=== PATIENT | male | born 1965 | race American Indian/Alaskan Native ===

== ENCOUNTER 2017-02-12 15:20 | Emergency (ER) | payer MEDICAID ==
--- NOTE | 2017-02-12 18:53 | Emergency Department Report ---
ED Extremity Problem HPI - General Chief complaint: Extremity Problem,Nontraumatic Stated complaint: SWELLING L LEG Time Seen by Provider: 02/12/17 18:43 Source: patient, EMS Mode of arrival: Stretcher Limitations: Other - History of Present Illness Initial comments: Patient is 52 years old male brought from [facility] for evaluation of left lower extremity swelling and pain for the last 4-5 days. Patient stated that he had history of DVT in the same leg he was on Xorelta. Patient denied any chest pain shortness of breath cough or fever. MD Complaint: extremity pain, extremity swelling -: days(s) Location: left, lower extremity History of Same: Yes Severity scale (0 -10): 6 Quality: sharp Associated Symptoms: denies: chest pain, shortness of breath, fever, myalgias - Related Data Allergies Allergy/AdvReac Type Severity Reaction Status Date / Time No Known Allergies Allergy Unverified 02/12/17 16:21 ED Review of Systems ROS: Stated complaint: SWELLING L LEG Other details as noted in HPI Comment: All other systems reviewed and negative Constitutional: denies: chills, fever Respiratory: denies: cough, orthopnea, shortness of breath, SOB with exertion, SOB at rest Cardiovascular: denies: chest pain, palpitations Gastrointestinal: denies: abdominal pain, nausea, vomiting Genitourinary: denies: urgency, dysuria, frequency, hematuria Neurological: denies: headache, weakness, numbness, paresthesias ED Past Medical Hx - Past Medical History Previous Medical History?: Yes Hx Deep Vein Thrombosis: Yes Hx Arthritis: Yes Hx Seizures: Yes Hx Psychiatric Treatment: Yes (Major Depressive Disorder) - Surgical History Past Surgical History?: Yes Additional Surgical History: left hand, left shoulder - Social History Smoking Status: Current Every Day Smoker Substance Use Type: None ED Physical Exam - General Limitations: Other General appearance: alert, in no apparent distress, other (patient was feeding easily however, looks comfortable in no acute distress) - Head Head exam: Present: atraumatic, normocephalic - Eye Eye exam: Present: normal appearance, PERRL - ENT ENT exam: Present: normal exam, normal orophraynx, mucous membranes moist - Neck Neck exam: Present: normal inspection, full ROM. Absent: tenderness, meningismus - Respiratory Respiratory exam: Present: normal lung sounds bilaterally. Absent: respiratory distress, wheezes, rales, rhonchi, stridor, chest wall tenderness, accessory muscle use, decreased breath sounds, prolonged expiratory - Cardiovascular Cardiovascular Exam: Present: regular rate, normal rhythm, normal heart sounds - GI/Abdominal GI/Abdominal exam: Present: soft, normal bowel sounds. Absent: distended, tenderness, guarding, rebound, rigid, organomegaly, mass, bruit, pulsatile mass , hernia - Extremities Exam Extremities exam: Present: tenderness (left leg), calf tenderness (left leg). Absent: pedal edema - Neurological Exam Neurological exam: Present: alert, oriented X3, CN II-XII intact, normal gait - Psychiatric Psychiatric exam: Present: depressed, suicidal ideation - Skin Skin exam: Present: warm, intact, normal color. Absent: cyanosis, diaphoretic ED Course Vital Signs 02/12/17 16:29 Temperature 97.5 F L Pulse Rate 88 Respiratory 18 Rate Blood Pressure 114/78 [Right] O2 Sat by Pulse 100 Oximetry - Reevaluation(s) Reevaluation #1: 02/12/17 19:55 Examined the patient again patient in no acute distress, sitting comfortably easily arousable. Denied any chest pain or shortness of breath. Reevaluation #2: 02/13/17 00:51 Patient receive his Xarorelta and he observed in the ER for 2 hours. Patient is sleeping comfortably in no acute distress. Denied any chest pain or shortness of breath, will discharge patient to go back to his facility. ED Medical Decision Making - Lab Data Result diagrams: 02/12/17 18:56 02/12/17 20:00 - Radiology Data Radiology results: report reviewed Left lower extremity Doppler ultrasound positive for DVT - Medical Decision Making Discussed with Dr. Kramer who advised patient can be started on Xarolleta and observed in the ER for 2 hours and then can be discharged his a prescription for Xarellota Critical care attestation.: If time is entered above; I have spent that time in minutes in the direct care of this critically ill patient, excluding procedure time. ED Disposition Clinical Impression: Acute deep vein thrombosis (DVT) of distal end of left lower extremity Disposition: DC-01 TO HOME OR SELFCARE Is pt being admited?: No Condition: Stable Instructions: Deep Venous Thrombosis (ED) Referrals: PRIMARY CARE, [Primary Care Provider] - 3-5 Days
[2017-02-12 19:02] LABS: Hematocrit 39.6 % (35.5-45.6); Mean Corpuscular HGB Conc 33 % (32-34); Mean Corpuscular Hemoglobin 28 pg (28-32); Mean Corpuscular Volume 85 fl (84-94); Platelet Count 419 K/mm3 (140-440); Red Blood Count 4.69 M/mm3 (3.65-5.03); Red Cell Distribution Width 13.4 % (13.2-15.2); White Blood Count 7.9 K/mm3 (4.5-11.0)
[2017-02-12 19:12] LABS: Partial Thromboplastin Time 29.2 Sec. (24.2-36.6)
[2017-02-12 19:36] LABS: Chloride TNR mmol/L (98-107); Potassium TNR mmol/L (3.6-5.0); Sodium TNR mmol/L (137-145)
[2017-02-12 19:37] LABS: Anion Gap TNR mmol/L; BUN/Creatinine Ratio TNR; Blood Urea Nitrogen TNR mg/dL (9-20); Carbon Dioxide TNR mmol/L (22-30); Glucose TNR mg/dL (75-100)
[2017-02-12 19:38] LABS: Alanine Aminotransferase TNR units/L (7-56); Albumin TNR g/dL (3.9-5); Bilirubin,Total TNR mg/dL (0.1-1.2); Calcium TNR mg/dL (8.4-10.2); Total Protein TNR g/dL (6.3-8.2)
[2017-02-12 19:39] LABS: Albumin/Globulin Ratio TNR %; Alkaline Phosphatase TNR units/L (35-129)
[2017-02-12] MEDS ORDERED: XARELTO PO ONE (20:30)
[2017-02-12 20:41] LABS: Alanine Aminotransferase 7 units/L (7-56); Albumin 3.8 g/dL (3.9-5); Albumin/Globulin Ratio 1.2 %; Alkaline Phosphatase 62 units/L (35-129); Anion Gap 15 mmol/L; BUN/Creatinine Ratio 14; Blood Urea Nitrogen 10 mg/dL (9-20); Calcium 9.1 mg/dL (8.4-10.2); Carbon Dioxide 25 mmol/L (22-30); Chloride 100.8 mmol/L (98-107); Glucose 98 mg/dL (75-100); Potassium 4.5 mmol/L (3.6-5.0); Sodium 136 mmol/L (137-145); Total Protein 6.9 g/dL (6.3-8.2)
[2017-02-13 01:56] VITALS: BP 136/83
--- NOTE | 2017-02-13 07:17 | Vascular Lab Report ---
Left Lower Extremity Venous Duplex Study: Reason for Exam: Pain and swelling of the left lower extremity. Comments on the Right: A limited duplex study was done of the proximal veins of the right lower extremity. All veins visualized are freely compressible without evidence of internal echogenicity. Flow is spontaneous and phasic throughout. No evidence of acute or chronic thrombus is seen in any of the vessels visualized. Comments on the Left: Acute thrombus is noted in the popliteal vein, and posterior tibial, and peroneal veins.. The remaining veins visualized are freely compressible without evidence of internal echogenicity. Spontaneous and phasic flow is present proximally. Impression: Acute deep venous thrombosis in the left lower extremity
== END 2017-02-13 01:57 | disposition home or self-care (01) ==
LOC: ED 15:20
DX: I82.4Z2 Acute embolism and thrombosis of unspecified deep veins of left distal lower extremity (principal); M19.90 Unspecified osteoarthritis, unspecified site; F32.9 Major depressive disorder, single episode, unspecified; F17.200 Nicotine dependence, unspecified, uncomplicated
CPT/HCPCS: 36415; 80053; 85027; 85610; 85730